=== PATIENT | female | born 1980 | race Hispanic/Latino ===

== ENCOUNTER 2017-11-08 07:45 | Outpatient (CLI) | payer BC ==
--- NOTE | 2017-11-08 08:23 | XRay Report ---
XRAY LEFT KNEE 4 THREE VIEWS: 11/08/17 CLINICAL: Knee pain. FINDINGS: Mild medial joint space narrowing with small osteophytes. The lateral joint space is normal with a tiny lateral femoral osteophyte. Small patellofemoral osteophytes. No joint effusion.Normal soft tissues. IMPRESSION: Mild osteoarthritis.
== END 2017-11-08 07:46 | disposition home or self-care (01) ==
LOC: SPVIMAG 07:45
PROVIDERS: ATTEND Orthopaedic Surgery
DX: M17.12 Unilateral primary osteoarthritis, left knee (principal)